=== PATIENT | male | born 1950 | race Hispanic/Latino ===

== ENCOUNTER 2019-09-15 19:09 | Emergency (ER) | payer OTHER, SELFPAY ==
[2019-09-15] MEDS ORDERED: Acetaminophen 500 MG TAB ONE (19:42)
--- NOTE | 2019-09-15 20:39 | RAD ---
PORTABLE CHEST: 09/15/19 PROVIDED CLINICAL HISTORY: Cough. FINDINGS: Cardiac silhouette appears prominent, likely at least partially on the basis of portable technique. T here is prominence of the pulmonary vasculature and pulmonary interstitium. No focal consolidation, p leural fluid or pneumothorax apparent. IMPRESSION: Prominence of the cardiac silhouette and pulmonary vasculature. Correlate with concerns for congestiv e failure. POS: JESSICA
[2019-09-17 13:56] LABS: SARS-CoV-2 MS2 Positive; SARS-CoV-2 N Gene Positive; SARS-CoV-2 S Gene Positive; SARS-CoV-2 orf1ab Positive
== END 2019-09-15 21:19 | disposition home or self-care (01) ==
LOC: ERS 19:09
DX: U07.1 COVID-19 (principal); G47.30 Sleep apnea, unspecified; I10 Essential (primary) hypertension; E78.5 Hyperlipidemia, unspecified
CPT/HCPCS: 71045; 87635; 93005; U0003

== ENCOUNTER 2020-12-30 17:43 | Emergency (ER) | payer SELFPAY ==
[2020-12-30] MEDS ORDERED: HYDROcodone/Acetaminophen 10/325 mg Tablet ONE (19:59)
== END 2020-12-30 20:09 | disposition home or self-care (01) ==
LOC: ERS 17:43
DX: N43.3 Hydrocele, unspecified (principal); G47.30 Sleep apnea, unspecified; K21.9 Gastro-esophageal reflux disease without esophagitis; E78.5 Hyperlipidemia, unspecified; I10 Essential (primary) hypertension
CPT/HCPCS: 76870; 93976